=== PATIENT | female | born 1970 | race Caucasian/White ===

== ENCOUNTER 2016-04-15 18:19 | Emergency (ER) | payer OTHER ==
[~2016-04-15 18:19] MED LIST: ADVAIR 250/28 DISKU1 IH; ANTIVERT 25MG25 MG PO; BUSPAR 15MG TAB15 MG PO; CEPHALEXIN500 M1 PO; CITALOPRAM HBR10 MG PO; EFFEXOR XR150 M1 PO; EFFEXOR75 MG PO; TOPROL XL100 MG PO; TOPROL XL50 MG PO; XANAX0.25 MG PO
== END 2016-04-15 20:15 | disposition home or self-care (01) ==
LOC: ED 18:19
DX: R42 Dizziness and giddiness (principal)

== ENCOUNTER → 2016-10-19 | Outpatient (CLI) | payer OTHER ==
[2016-04-15 19:59] VITALS: BP 113/73
== END ==
LOC: RAD 09:49
DX: R10.2 Pelvic and perineal pain (principal)

== ENCOUNTER 2017-01-28 00:49 | Emergency (ER) | payer OTHER ==
[~2017-01-28] VITALS: Ht 162.6 cm; Wt 65.5 kg
[2017-01-28 01:58] LABS: EOS # 0.1 (0.04-0.40); EOS % 1.6 % (1.0-5.0); HEMATOCRIT 34.9 % (37.0-47.0); HEMOGLOBIN 11.4 g/dL (12.5-16.0); LYMPH# 1.9 (1.50-4.00); MEAN CELL VOLUME 96 fl (78-100); MEAN CORPUSCULAR HEMOGLOBIN 31 pg (27-31); MEAN CORPUSCULAR HGB CONC 33 g/dL (33-37); MEAN PLATELET VOLUME 9.7 fl (7.4-10.4); MONO # 0.5 (0.20-0.80); NEU # 3.8 (1.40-6.50); PLATELET COUNT 232 K/mm3 (130-400); RED BLOOD COUNT 3.65 M/mm3 (4.10-5.30); RED CELL DISTRIBUTION WIDTH 13.5 % (11.5-14.5); WHITE BLOOD COUNT 6.3 K/mm3 (4.8-10.8)
[2017-01-28 02:06] LABS: ALBUMIN 3.7 g/dL (3.5-5.0); BUN/CREATININE RATIO 12.2 (6.0-26.0); POTASSIUM 4.1 mmol/L (3.6-5.0); TOTAL BILIRUBIN 0.5 mg/dL (0.2-1.3); TOTAL PROTEIN 6.7 g/dL (6.3-8.2)
[2017-01-28 02:38] VITALS: BP 120/74
== END 2017-01-28 02:38 | disposition home or self-care (01) ==
LOC: ED 00:49
PROVIDERS: Family Medicine
DX: M94.0 Chondrocostal junction syndrome [Tietze] (principal); Q21.1 Atrial septal defect; R00.0 Tachycardia, unspecified; F17.200 Nicotine dependence, unspecified, uncomplicated; Z90.49 Acquired absence of other specified parts of digestive tract; Z90.710 Acquired absence of both cervix and uterus
CPT/HCPCS: J1885

== ENCOUNTER → 2018-03-15 | Outpatient (CLI) | payer SELFPAY ==
[~2018-03-15] VITALS: Ht 162.6 cm; Wt 63.2 kg
[2018-03-15 12:33] LABS: EOS % 0.7 % (1.0-5.0); HEMATOCRIT 38.3 % (37.0-47.0); HEMOGLOBIN 12.5 g/dL (12.5-16.0); LYMPH# 1.1 (1.50-4.00); MEAN CELL VOLUME 95 fl (78-100); MEAN CORPUSCULAR HEMOGLOBIN 31 pg (27-31); MEAN CORPUSCULAR HGB CONC 33 g/dL (33-37); MEAN PLATELET VOLUME 9.4 fl (7.4-10.4); MONO # 0.4 (0.20-0.80); NEU # 4.1 (1.40-6.50); PLATELET COUNT 288 K/mm3 (130-400); RED BLOOD COUNT 4.04 M/mm3 (4.10-5.30); RED CELL DISTRIBUTION WIDTH 13.2 % (11.5-14.5); WHITE BLOOD COUNT 5.6 K/mm3 (4.8-10.8)
[2018-03-15 12:49] LABS: ALBUMIN 4.5 g/dL (3.5-5.0); CALCIUM 9.3 mg/dL (8.4-10.2); POTASSIUM 4.3 mmol/L (3.6-5.0); TOTAL BILIRUBIN 0.6 mg/dL (0.2-1.3); TOTAL PROTEIN 7.6 g/dL (6.3-8.2)
[2018-03-15 13:42] VITALS: BP 110/71
[2018-03-15 15:15] VITALS: BP 99/58
== END ==
LOC: AMSURD 12:12 → LAB 12:12
PROVIDERS: Nurse Practitioner
DX: R51 Headache (principal); R53.81 Other malaise
CPT/HCPCS: J1885; J2550; J7030

== ENCOUNTER → 2020-03-09 | Outpatient (CLI) | payer OTHER ==
[2019-10-26 15:46] VITALS: BP 118/69
[~2020-03-09] MED LIST changes: +ZYRTEC ALLERGY10 MG PO
== END ==
LOC: RAD 03-04 08:15
DX: Z12.31 Encounter for screening mammogram for malignant neoplasm of breast (principal); Z13.6 Encounter for screening for cardiovascular disorders

== ENCOUNTER → 2021-01-06 | Outpatient (CLI) | payer OTHER | LOC: RAD 08:47 | DX: J98.11 Atelectasis (principal); J98.4 Other disorders of lung; J43.9 Emphysema, unspecified; K57.30 Diverticulosis of large intestine without perforation or abscess without bleeding; Z90.49 Acquired absence of other specified parts of digestive tract; Z90.710 Acquired absence of both cervix and uterus | CPT/HCPCS: Q9967 ==

== ENCOUNTER → 2021-03-29 | Outpatient (CLI) | payer OTHER | LOC: RAD 09:04 | DX: M54.2 Cervicalgia (principal); R20.0 Anesthesia of skin ==